=== PATIENT | male | born 1990 | race African-American/Black ===

== ENCOUNTER 2018-01-04 13:11 | Emergency (ER) | payer SELFPAY ==
[~2018-01-04] VITALS: Ht 188 cm; Wt 114.0 kg
[2018-01-04 13:32] VITALS: BP 125/86
[2018-01-04 14:10] LABS: BASOPHILS % 1.2 % (0.0-2.0); EOSINOPHILS % 2.3 % (0.0-5.0); HEMOGLOBIN. 15.1 g/dL (14.0-18.0); LYMPHOCYTES % 43.4 % (20.0-50.0); MEAN CORPUSCULAR HEMOGLOBIN 30.7 pg (28.0-32.0); MEAN CORPUSCULAR VOLUME 89.4 fL (80.0-94.0); MONOCYTES % 11.3 % (2.0-8.0); NEUTROPHILS % 41.8 % (40.0-76.0); PLATELET 257 x1000/uL (130-400); RED BLOOD CELL COUNT 4.92 mill/uL (4.7-6.1); RED CELL DISTRIBUTION WIDTH 13.9 % (11.6-14.6)
[2018-01-04 14:24] LABS: CHLORIDE 107 mEq/L (98-107)
[2018-01-04 14:51] LABS: CLARITY URINE CLEAR (CLEAR); COLOR URINE YELLOW (YELLOW); KETONES URINE NEGATIVE (NEGATIVE); LEUKOCYTE ESTERASE URINE NEGATIVE (NEGATIVE); NITRITE URINE NEGATIVE (NEGATIVE); OCCULT BLOOD URINE TRACE (NEGATIVE); PROTEIN URINE NEGATIVE (NEGATIVE); SPECIFIC GRAVITY URINE 1.018 (1.005-1.030); UROBILINOGEN URINE 0.2 E.U./dL (0.2-1.0)
== END 2018-01-04 16:02 | disposition home or self-care (01) ==
LOC: ER 14:30
DX: N47.8 Other disorders of prepuce (principal)
CPT/HCPCS: 36415; 80053; 81003; 85025; 99284